=== PATIENT | male | born 1950 | race Caucasian/White ===

== ENCOUNTER 2019-06-01 05:25 | Inpatient (IN) | payer MEDICARE ==
[~2019-06-01] VITALS: Ht 177.8 cm; Wt 108.0 kg
[2019-06-01 13:14] VITALS: BP 109/66
== END 2019-06-01 17:18 | disposition home or self-care (01) | DRG 470 ==
LOC: ORIP 05:25 → 4NOR 09:27 → DCLOUNGE 17:04
PROVIDERS: ADMIT Orthopaedic Surgery; ATTEND Orthopaedic Surgery
PROC: 0SRB06A Replacement of Left Hip Joint with Oxidized Zirconium on Polyethylene Synthetic Substitute, Uncemented, Open Approach (ICD-10-PCS; principal; 2019-06-01)
DX: M16.12 Unilateral primary osteoarthritis, left hip (principal); I10 Essential (primary) hypertension; B95.61 Methicillin susceptible Staphylococcus aureus infection as the cause of diseases classified elsewhere; Z86.718 Personal history of other venous thrombosis and embolism
CPT/HCPCS: 36415; 72170; 76000; 80053; 83036; 85025; 85610; 85730; 87081; 87147; 93005; C1713; J0171; J0690; J1100; J1885; J2250; J2405; J2704; J2710; J2795; J3010; J3370; J3480; C1776; J7120